=== PATIENT | female | born 1980 | race Caucasian/White ===

== ENCOUNTER → 2024-12-02 12:15 | Outpatient (BNVA) | payer MEDICAID, SELFPAY | PROVIDERS: PCP Family Medicine; Visit Provider Family Medicine | DX: K21.9 Gastro-esophageal reflux disease without esophagitis (principal); F44.81 Dissociative identity disorder; Z98.84 Bariatric surgery status; F50.83 Pica in adults; E55.9 Vitamin D deficiency, unspecified; R79.89 Other specified abnormal findings of blood chemistry; M54.9 Dorsalgia, unspecified; G89.29 Other chronic pain | CPT/HCPCS: 80053; 80061; 82306; 82607; 82728; 82746; 83540; 84439; 84443; 85025 ==